=== PATIENT | male | born 1990 | race American Indian/Alaskan Native ===

== ENCOUNTER 2016-11-28 10:31 | Emergency (ER) | payer MEDICAID, OTHER ==
[2016-11-28 10:51] VITALS: BP 122/79; PULSE 67; RESP 12; TEMP 98.7; O2SAT 96
--- NOTE | 2016-11-28 11:31 | C.PDOC ---
History Of Present Illness 26 yo male come in for evaluation of B/L hand pain, " stiffness" intermittent for past 3 weeks. Pt admits, " has to lift heavy weight at work and also work on computer". Pt sts, pain is localized, non-radiating with intermittent tingling over B/L fingers. Pt admits, was seen at [facility] prior and given Ibuprofen. Otherwise, pt denies known direct trauma or injury, fever, chills, skin changes, denies weakness, vasular deficits to B?L hands. Time Seen by Provider: 11/28/16 11:20 Chief Complaint (Nursing): Upper Extremity Problem/Injury History Per: Patient Onset/Duration Of Symptoms: Intermittent Episodes Past Medical History Reviewed: Historical Data, Nursing Documentation, Vital Signs Vital Signs: Last Vital Signs Temp 98.7 F 11/28/16 10:48 Pulse 67 11/28/16 10:48 Resp 12 11/28/16 10:48 BP 122/79 11/28/16 10:48 Pulse Ox 96 11/28/16 11:33 - Medical History PMH: No Chronic Diseases Other Surgeries: not contributory Family History: States: No Known Family Hx - Social History Hx Alcohol Use: Yes Hx Substance Use: No - Immunization History Hx Influenza Vaccination: No Hx Pneumococcal Vaccination: No Review Of Systems Except As Marked, All Systems Reviewed And Found Negative. Constitutional: Negative for: Fever, Chills ENT: Negative for: Throat Pain Musculoskeletal: Positive for: Hand Pain Skin: Negative for: Rash, Bruising Neurological: Negative for: Weakness, Numbness, Headache Physical Exam - Physical Exam Appears: Well, Non-toxic, No Acute Distress Skin: Normal Color, Warm, No Rash, No Ecchymosis Extremity: Normal ROM (B/L hands), Tenderness (mild tenderness over dorsal aspect B/L hands. No edema, no skin changes, no neurovascular deficits.), Capillary Refill (less than 2sec to B/L hands), No Deformity, No Swelling Neurological/Psych: Oriented x3, Normal Speech, Normal Motor, Normal Sensation, Normal Reflexes ED Course And Treatment O2 Sat by Pulse Oximetry: 96 Progress Note: On re-eavluation, pt is afebrile, hemodynamicaly stable. Non- toxic. B/L wrists/hands: FAROM, no neurovascular deficits. NO deformity. Right wrist volar splint applied. Adivsed cont. Ibuprofe, and wrist protection at work. Pt advised and ref. to f/u with hand specialsit in 2-3 days for re- eavl. return if any new changes. On discharge, pt is asking for wok note. Disposition Counseled Patient/Family Regarding: Diagnosis, Need For Followup, Rx Given - Disposition Referrals: Hoa Pandey MD [Staff Provider] - [facility] [Outside] Disposition: HOME/ ROUTINE Disposition Time: 11:28 Condition: STABLE Additional Instructions: WRIST SPLINT WRIST PADS/CUSHIONING/PROTECTION IBUPROFN TWICE DAILY AFTER FOOD FOLLOW UP WITH PMD, HAND SPECIALIST IN 2-3 DAYS FOR RE-EVALUATION. RETURN TO ED IF ANY NEW CHANGES., Instructions: Carpal Tunnel Syndrome (ED) Forms: [facility] (Sami), Work Excuse - Clinical Impression Clinical Impression: Carpal tunnel syndrome
== END 2016-11-28 11:51 | disposition home or self-care (01) ==
LOC: C.ER 10:31
DX: G56.03 Carpal tunnel syndrome, bilateral upper limbs (principal)